=== PATIENT | female | born 1995 | race Caucasian/White ===

== ENCOUNTER 2023-03-15 09:11 | Emergency (ER) | payer SELFPAY ==
[2023-03-15 09:17] VITALS: BP 136/87; PULSE 90; RESP 18; TEMP 37.1; O2SAT 100
--- NOTE | 2023-03-15 09:18 | ED.FEMALEGU ---
HPI - Female Genitourinary General Chief complaint: Urogenital-Female Stated complaint: Poss UTI Time Seen by Provider: 03/15/23 09:22 Source: patient, RN notes reviewed and old records reviewed Mode of arrival: ambulatory Limitations: no limitations History of Present Illness HPI Narrative: 27 year old female who presents to [facility] care with complaints of urinary pressure. Patient reports that she just finished Amoxicillin for UTI and she states that her prior symptoms are much improved but continues to have some pressure to bladder, and some urgency. Patient is on menses at this time also.Patient reports that she did miss 2 doses of the amoxicillin but did finish script. Patient reports that she initially had pelvic pain but that has resolved denies any pain or burning with urination but urgency and bladder pressure continues. MD elicited complaint: UTI Pertinent past history: other (treated recently for UTI) Onset (ago): day(s) (9-10 days ago symptoms started) Location of symptoms: other (bladder pressure) Quality of pain: aching Vaginal bleeding: scant (on menses) Related Data Allergies Allergy/AdvReac Type Severity Reaction Status Date / Time No Known Allergies Allergy Verified 03/15/23 09:20 Review of Systems Review of Systems: CONSTITUTIONAL: Denies fever, chills, or sweats. CARDIOVASCULAR: Denies chest pain, palpitations, or edema. RESPIRATORY: Denies cough or dyspnea. GASTROINTESTINAL: Denies abdominal pain, nausea, vomiting, or diarrhea. GENITOURINARY: Reports no dysuria, frequency,states urgency. Denies flank pain or hematuria, reports bladder pressure SKIN: Denies rash or itching. MUSCULOSKELETAL: Denies back pain or myalgia. Denies CVA tenderness NEUROLOGIC: Denies headache All systems reviewed & are unremarkable except as noted in HPI and below PMFSH Past Medical History Medical History (Updated 03/16/23 @ 00:02 by Rosemary Gray) No active medical problems Surgical History Surgical History (Updated 03/15/23 @ 10:43 by Jillian Hair NP) No history of previous surgery Social History Social History (Updated 03/15/23 @ 10:42 by Jillian Hair NP) Smoking status: Never smoker Alcohol intake: current Alcohol use details: social Substance use type: does not use Gender identity (if verbalized by the patient): Female Comments At time of signature, agree with nursing past medical, surgical, social and family history. There is no relevant family history pertinent to the presenting complaint Exam Narrative: GENERAL: Well-appearing, well-nourished, and in no acute distress. HEAD: Normocephalic, atraumatic. NECK: Supple. no ;lymphadenopathy CHEST: Clear to auscultation. No respiratory distress. HEART: Regular rate and rhythm. No murmur heard. Normal peripheral pulses. ABDOMEN: Soft, nontender, nondistended, normal active bowel sounds. No CVA tenderness, reports bladder pressure and urgency EXTREMITIES: Normal range of motion. No edema. SKIN: Warm, dry, no rash. NEURO: No focal deficits. Alert and oriented x3. Course Course Emergency Course: Patient is aware of diagnosis, understands and agrees to treatment plan.? Anticipatory guidance given.? Patient agrees to follow-up as directed and is aware of reasons to seek care at the emergency department. Portions of this record may have been created with voice recognition software Level of Care: Express Care Visit Vital Signs Vital signs: Vital Signs Temperature 37.1 C 03/15/23 09:17 Pulse Rate 90 03/15/23 09:17 Respiratory Rate 18 03/15/23 09:17 Blood Pressure 136/87 03/15/23 09:17 Pulse Oximetry 100 03/15/23 09:17 Oxygen Delivery Room Air 03/15/23 09:17 Temperature 37.1 C 03/15/23 09:17 Pulse Rate 90 03/15/23 09:17 Respiratory Rate 18 03/15/23 09:17 Blood Pressure 136/87 03/15/23 09:17 Pulse Oximetry 100 03/15/23 09:17 Oxygen Delivery Room Air 03/15/23 09:17 [facility] -
== END 2023-03-15 10:32 | disposition home or self-care (01) ==
PROVIDERS: Emergency Provider Registered Nurse
DX: R30.9 Painful micturition, unspecified (principal)
CPT/HCPCS: 81003; 99213; G0463

== ENCOUNTER 2023-11-27 14:20 | Emergency (ER) | payer BC, SELFPAY ==
[2023-11-27 14:26] VITALS: BP 130/91; PULSE 86; RESP 16; TEMP 37.3; O2SAT 100
--- NOTE | 2023-11-27 14:36 | ED.URI ---
HPI - URI/Sore Throat General Chief Complaint: Upper Respiratory Infection Stated Complaint: Sinus Pain Time Seen by Provider: 11/27/23 14:37 Source: patient and RN notes reviewed Mode of arrival: ambulatory Limitations: no limitations History of Present Illness HPI Narrative: 28-year-old female presents with concern for productive cough, ears popping, hoarse voice. Reports symptoms started on Saturday. Reports she initially had chills fever. Reports those have resolved. She has been taking Mucinex. Denies shortness of breath MD elicited complaint: cough Related Data Allergies Allergy/AdvReac Type Severity Reaction Status Date / Time No Known Allergies Allergy Verified 11/27/23 14:30 Review of Systems Review of Systems: CONSTITUTIONAL: Denies malaise, chills, sweats, or fever. EYES: Denies visual changes, redness, or discharge. ENT: Reports rhinorrhea, congestion. Sinus pain, otalgia and sore throat. CARDIOVASCULAR: Denies chest pain, palpitations, or edema. RESPIRATORY: Reports productive cough. Denies dyspnea. GASTROINTESTINAL: Denies abdominal pain, nausea, vomiting, diarrhea SKIN: Denies rash or itching. MUSCULOSKELETAL: Denies myalgia. NEUROLOGIC: Denies headache. All systems reviewed & are unremarkable except as noted in HPI and below PMFSH Past Medical History Medical History (Updated 11/27/23 @ 14:42 by Claudia Whalen NP) No active medical problems Surgical History Surgical History (Updated 03/15/23 @ 10:43 by Jillian Hair NP) No history of previous surgery Social History Social History (Updated 03/15/23 @ 10:42 by Jillian Hair NP) Smoking status: Never smoker Alcohol intake: current Alcohol use details: social Substance use type: does not use Gender identity (if verbalized by the patient): Female Comments At time of signature, agree with nursing past medical, surgical, social and family history. There is no relevant family history pertinent to the presenting complaint Exam Narrative: GENERAL: Well-appearing, well-nourished, and in no acute distress. HEAD: Normocephalic EYES: PERRLA, conjunctivae clear ENT: Nares clear, turbinates edematous and erythematous, clear discharge. Mucous membranes moist. TM pearly hinds with dull light reflex bilaterally; no tragal tenderness. Oropharynx not erythematous without lesions. Tonsils not enlarged and without exudate, no drooling, no trismus, uvula midline. Mild hoarse voice NECK: Supple. No lymphadenopathy CHEST: Clear to auscultation, breath sounds equal. No wheezing, rhonchi, rales, or stridor. No respiratory distress, speaks in full sentences. HEART: Regular rate and rhythm. No murmur heard. SKIN: Warm, dry, no rash. NEURO: Alert and oriented x3. PSYCH: Normal mood and affect Course Course Emergency Course: Patient is aware of diagnosis, understands and agrees to treatment plan. Anticipatory guidance given. Patient agrees to follow-up as directed and is aware of reasons to seek care at the emergency department. Portions of this record may have been created with voice recognition software Level of Care: Express Care Visit Vital Signs Vital signs: Vital Signs Temperature 99.2 F 11/27/23 14:26 Pulse Rate 86 11/27/23 14:26 Respiratory Rate 16 11/27/23 14:26 Blood Pressure 130/91 H 11/27/23 14:26 Pulse Oximetry 100 11/27/23 14:26 Oxygen Delivery Room Air 11/27/23 14:26 Temperature 99.2 F 11/27/23 14:26 Pulse Rate 86 11/27/23 14:26 Respiratory Rate 16 11/27/23 14:26 Blood Pressure 130/91 H 11/27/23 14:26 Pulse Oximetry 100 11/27/23 14:26 Oxygen Delivery Room Air 11/27/23 14:26 Reviewed. MDM - URI/Sore Throat MDM Narrative Medical decision making narrative: Differential diagnosis considered: Rodriguez virus, strep pharyngitis, allergic rhinitis, upper respiratory tract infection, sinusitis, rhinosinusitis, nasopharyngitis. viral pharyngitis, otitis media, otitis business agent
== END 2023-11-27 14:45 | disposition home or self-care (01) ==
PROVIDERS: Emergency Provider Nurse Practitioner
DX: J40 Bronchitis, not specified as acute or chronic (principal)
CPT/HCPCS: 99213; G0463